=== PATIENT | female | born 1940 | race Caucasian/White ===

== ENCOUNTER 2022-01-03 12:02 | Inpatient (IN) | payer MEDICARE ==
[~2022-01-03] VITALS: Ht 165.1 cm; Wt 88.9 kg
[~2022-01-03 12:02] MED LIST: 3IN1 COMMODE XX; ALBUTEROL2.5 MG/3 M NEB; AMARYL2 MG PO; AMPICILLIN TRI500 M1 PO; ANTIVERT25 MG PO; ARAVA20 MG PO; ASPIRIN325 MG PO; AZO CRANBERRY1 EACH PO; CANE1 EACH; CLARITIN10 M2 PO; CLARITIN10 MG PO; COZAAR100 MG PO; COZAAR50 MG PO; CYMBALTA 30MG C30 MG PO; FENOFIBRATE160 MG PO; FLORAJEN460 MG PO; FOLIC ACID1 MG PO; GABAPENTIN300 MG PO; GABAPENTIN600 MG PO; HUMULIN R100 UNIT/2 SC; KLOR-CON M2020 MEQ PO; LEVEMIR VI100 UNITS/ SC; LOSARTAN-HCTZ1 EAC1 PO; LOVAZA1 GM PO; METFORMIN HCL500 MG PO; MIRALAX17 GM PO; ONDANSETRON ODT4 MG PO; ONE DAILY MULT1 EAC1 PO; PANTOPRAZOLE SO40 MG PO; PHENAZOPYRIDINE PO; PLAQUENIL200 MG PO; POTASSIUM CHLO20 ME2 PO; PREDNISONE 10MG10 MG PO; REPATHA SU140 MG/1 M SC; TRAMADOL HCL50 MG PO; TRAZODONE 50MG50 MG PO; TRESIBA100 UNIT/1 SC; ULTRA-LIGHT RO1 EACH XX; VITAMIN B-121000 MC1 PO; VITAMIN D5000 UNI1 PO; ZYRTEC10 M3 PO; [UNRECOGNIZED DRUG - OTHER]
[2022-01-03 13:50] LABS: EOSINOPHIL 2.1 % (0-7); HCT 39.9 % (37.0-47.0); HGB 13.1 g/dl (12.5-16.0); LYMPHOCYTE 22.7 % (15-48); MCH 29.4 pg (25.0-31.0); MCHC 32.8 g/dL (32.0-36.0); MCV 89.7 fL (78.0-100.0); MONOCYTE 10.9 % (0-12); MPV 12.8 fL (6.0-9.5); NEUTROPHIL 62.8 % (41-80); NRBC 0; PLT 189 K/uL (150-400); RBC 4.45 M/uL (4.20-5.40); RDW 13.9 % (11.5-14.0); WBC 6.2 K/uL (4.0-10.5)
[2022-01-03 13:55] LABS: INR 1.1 (0.9-1.2); PROTHROMBIN TIME 13.6 SECONDS (11.8-13.4); PTT 24.1 SECONDS (24.4-34.7)
[2022-01-03 14:02] LABS: BILIRUBIN 1+ mg/dL (NEGATIVE); BLOOD NEGATIVE Ery/uL (NEGATIVE); CLARITY CLEAR (CLEAR); COLOR YELLOW (YELLOW); GLUCOSE (U) NORMAL (NORMAL); LEUKOCYTES TRACE Leu/uL (NEGATIVE); NITRITE NEGATIVE (NEGATIVE); PROTEIN 1+ mg/dL (NEGATIVE); SPECIFIC GRAVITY >=1.030 (1.001-1.030); UROBILINOGEN 0.2 mg/dL (0.2-1.0)
[2022-01-03 14:10] LABS: BACTERIA 2+
[2022-01-03 14:27] LABS: ALBUMIN 3.6 g/dL (3.4-5.0); BILIRUBIN - TOTAL 0.6 mg/dL (0.2-1.0); BUN/CREAT RATIO (CALC) 21.5 RATIO; CREATININE 1.07 mg/dL (0.51-0.95); GLOBULIN (CALCULATION) 3.5 g/dL; MAGNESIUM 1.7 mg/dL (1.8-2.4); POTASSIUM 3.8 mmol/L (3.5-5.1); TOTAL PROTEIN 7.1 g/dL (6.4-8.2)
[2022-01-03 15:00] LABS: LACTIC ACID 1.5 mmol/L (0.4-1.9)
[2022-01-04] MEDS ORDERED: TRESIBA FL100 UNIT/1 SC (01:09)
[2022-01-04] MEDS ORDERED: NAMENDA 10MG TA10 MG PO (01:10)
[2022-01-04] MEDS ORDERED: ULTRAM50 MG PO (01:13)
[2022-01-04] MEDS ORDERED: ZYRTEC10 MG PO (01:15)
[2022-01-04] MEDS ORDERED: PROBIOTIC1 EAC2 PO (01:16)
[2022-01-04] MEDS ORDERED: PEPCID AC20 MG PO (01:17)
[2022-01-04 06:39] LABS: BASOPHIL 1.2 % (0-2); EOSINOPHIL 2.8 % (0-7); HCT 36.9 % (37.0-47.0); HGB 11.9 g/dl (12.5-16.0); LYMPHOCYTE 33.5 % (15-48); MCH 29.3 pg (25.0-31.0); MCHC 32.2 g/dL (32.0-36.0); MCV 90.9 fL (78.0-100.0); MONOCYTE 11.3 % (0-12); MPV 12.3 fL (6.0-9.5); NEUTROPHIL 50.8 % (41-80); NRBC 0; PLT 188 K/uL (150-400); RBC 4.06 M/uL (4.20-5.40); RDW 14.1 % (11.5-14.0); WBC 6.7 K/uL (4.0-10.5)
[2022-01-04 07:09] LABS: BUN/CREAT RATIO (CALC) 17.2 RATIO; CREATININE 1.16 mg/dL (0.51-0.95); POTASSIUM 3.5 mmol/L (3.5-5.1)
--- NOTE | 2022-01-04 11:10 | NUR ---
MET WITH PT AND DAUGHTER LIBERTY [phone]. REGARDING D/C PLANS. PT. IS CURRENT WITH [facility] FOR THERAPY. SHE HAS FRIENDS WHO CHECK IN ON HER AND A CONVEYANCER EVERY OTHER WEEK. THE DAUGHTER ASKED IF PT. COULD BE REFERRED TO [facility]. PER THERAPY EVALS THEY ARE RECOMMENDING PT. RETURN HOME WITH HH.
--- NOTE | 2022-01-04 12:15 | NUR ---
CHECKED WITH DORIS AT [facility] THEY WILL REVIEW REFERRAL. PER DR. MOORE HE THINKS PT WOULD BE READY BY SATURDAY THEY ARE WAITING ON CULTURES.
--- NOTE | 2022-01-05 01:43 | NUR ---
2100- RESIDENT DIFFICULT TO AROUSE, WOULD RESPONSE WITH TACTILE STIMULI BUT LETHERGIC, SPEECH GARBLED, SKIN COOL AND CLAMMY, BLOOD SUGAR 225 SCHEDULE 3 UNITSOF REGULAR INSULIN GIVEN ORDERED, UNABLE TO GIVE PO ORDERED MEDICATIONS R/T ALTERED MENTAL STATUS AND DIFFICULTY TO AROUSE. VITAL SIGNS STABLE. DISINTEGRATOR OPERATOR NOTFIED.STROKE PROTOCOL INITATED, SEND FOR CT SCAN OF HEAD, RESULTS NEG. RETURNED TO ROOM, CONDITION UNCHANGED.
--- NOTE | 2022-01-05 03:45 | NUR ---
0200 PATIENT AWAKE AND BACK TO BASELINE.
[2022-01-05 07:02] LABS: BASOPHIL 0.9 % (0-2); EOSINOPHIL 2.6 % (0-7); HCT 36.7 % (37.0-47.0); HGB 11.9 g/dl (12.5-16.0); LYMPHOCYTE 26.8 % (15-48); MCH 29.3 pg (25.0-31.0); MCHC 32.4 g/dL (32.0-36.0); MCV 90.4 fL (78.0-100.0); MPV 11.8 fL (6.0-9.5); NEUTROPHIL 59.2 % (41-80); NRBC 0; PLT 177 K/uL (150-400); RBC 4.06 M/uL (4.20-5.40); RDW 14.1 % (11.5-14.0); WBC 6.6 K/uL (4.0-10.5)
[2022-01-05 07:28] LABS: ALBUMIN 2.6 g/dL (3.4-5.0); BILIRUBIN - TOTAL 0.4 mg/dL (0.2-1.0); BUN/CREAT RATIO (CALC) 10.1 RATIO; CREATININE 2.27 mg/dL (0.51-0.95); GLOBULIN (CALCULATION) 3.5 g/dL; MAGNESIUM 1.8 mg/dL (1.8-2.4); POTASSIUM 3.6 mmol/L (3.5-5.1); TOTAL PROTEIN 6.1 g/dL (6.4-8.2)
--- NOTE | 2022-01-05 10:00 | NUR ---
01/05/22 [facility] has accept patient for admission on 01/06. Daughter, Ginger Camilo, reports that her son will provide transportation. Please call Ms. Camilo r/t time for transport. Report given to MS TEN Jackson.
--- NOTE | 2022-01-05 12:31 | NUR ---
PT HAS BEEN ACCEPTED TO [facility] FOR 01/06/22. PT. MUST HAVE A NEW COVID TEST BEFORE ADMISSION. REPORT NUMBER IS [phone] FAX IS [phone]
--- NOTE | 2022-01-05 12:33 | NUR ---
TC TO PT. DAUGHTER, LIBERTY, . HAD TO LEAVE A MESSAGE FOR A RETURN CALL.
[2022-01-06 06:42] LABS: BASOPHIL 1.2 % (0-2); EOSINOPHIL 4.3 % (0-7); HCT 39.1 % (37.0-47.0); HGB 12.7 g/dl (12.5-16.0); LYMPHOCYTE 32.1 % (15-48); MCH 29.4 pg (25.0-31.0); MCHC 32.5 g/dL (32.0-36.0); MCV 90.5 fL (78.0-100.0); MONOCYTE 10.4 % (0-12); MPV 12.4 fL (6.0-9.5); NEUTROPHIL 51.3 % (41-80); NRBC 0; PLT 191 K/uL (150-400); RBC 4.32 M/uL (4.20-5.40); RDW 13.9 % (11.5-14.0)
[2022-01-06 07:11] LABS: BUN/CREAT RATIO (CALC) 15.5 RATIO; CREATININE 1.03 mg/dL (0.51-0.95); POTASSIUM 3.6 mmol/L (3.5-5.1)
[2022-01-06] MEDS ORDERED: CYMBALTA 30MG C30 MG PO (08:00)
[2022-01-06] MEDS ORDERED: ULTRAM50 MG PO (08:00)
[2022-01-06] MEDS ORDERED: GABAPENTIN600 MG PO (08:00)
== END 2022-01-06 10:54 | DRG 689 ==
LOC: FER 12:02 → FMS 22:19
PROVIDERS: Emergency Medicine; Internal Medicine; Nurse Practitioner; ADMIT Internal Medicine
DX: N39.0 Urinary tract infection, site not specified (principal); G93.41 Metabolic encephalopathy; N17.9 Acute kidney failure, unspecified; Z20.822 Contact with and (suspected) exposure to COVID-19; Z66 Do not resuscitate; I10 Essential (primary) hypertension; I25.10 Atherosclerotic heart disease of native coronary artery without angina pectoris; E11.9 Type 2 diabetes mellitus without complications; E86.0 Dehydration; F03.90 Unspecified dementia, unspecified severity, without behavioral disturbance, psychotic disturbance, mood disturbance, and anxiety; M06.9 Rheumatoid arthritis, unspecified; F32.A Depression, unspecified; E78.5 Hyperlipidemia, unspecified; Z90.49 Acquired absence of other specified parts of digestive tract; Z90.710 Acquired absence of both cervix and uterus; Z98.49 Cataract extraction status, unspecified eye; Z88.5 Allergy status to narcotic agent; Z79.899 Other long term (current) drug therapy; Z79.52 Long term (current) use of systemic steroids; Z79.84 Long term (current) use of oral hypoglycemic drugs; Z79.82 Long term (current) use of aspirin; Z88.8 Allergy status to other drugs, medicaments and biological substances; Z98.41 Cataract extraction status, right eye; Z98.42 Cataract extraction status, left eye
CPT/HCPCS: 36415; 70450; 71045; 80048; 80053; 81001; 82962; 83605; 83735; 84145; 84443; 84484; 85025; 85610; 85730; 87040; 87088; 93005; 94010; 94760; 94762; 97162; 97166; 97530-GP; 97535; J0696; J1650; J7030; J7512; U0002

== ENCOUNTER 2022-02-12 17:24 | Inpatient (IN) | payer MEDICARE ==
[~2022-02-12] VITALS: Ht 170.2 cm; Wt 86.3 kg
[~2022-02-12 17:24] MED LIST changes: +NAMENDA 10MG TA10 MG PO; +PEPCID AC20 MG PO; +PROBIOTIC1 EAC2 PO; +TRESIBA FL100 UNIT/1 SC; +ULTRAM50 MG PO; +ZYRTEC10 MG PO
[2022-02-12 18:49] LABS: BASOPHIL 0.6 % (0-2); EOSINOPHIL 1.1 % (0-7); HCT 36.5 % (37.0-47.0); HGB 11.9 g/dl (12.5-16.0); LYMPHOCYTE 6.3 % (15-48); MCHC 32.6 g/dL (32.0-36.0); MONOCYTE 7.6 % (0-12); MPV 11.7 fL (6.0-9.5); NRBC 0; PLT 203 K/uL (150-400); RDW 13.9 % (11.5-14.0); WBC 14.1 K/uL (4.0-10.5)
[2022-02-12 19:14] LABS: BILIRUBIN NEGATIVE (NEGATIVE); BLOOD NEGATIVE Ery/uL (NEGATIVE); CLARITY CLEAR (CLEAR); COLOR YELLOW (YELLOW); GLUCOSE (U) 1+ mg/dL (NORMAL); LEUKOCYTES NEGATIVE Leu/uL (NEGATIVE); NITRITE NEGATIVE (NEGATIVE); PROTEIN NEGATIVE (NEGATIVE); UROBILINOGEN 0.2 mg/dL (0.2-1.0); pH 5.5 (5.0-9.0)
[2022-02-12 19:14] LABS: BUN/CREAT RATIO (CALC) 20.5 RATIO; CREATININE 1.32 mg/dL (0.51-0.95); POTASSIUM 4.2 mmol/L (3.5-5.1)
--- NOTE | 2022-02-12 22:09 | NUR ---
PATIENT ARRIVED TO FLOOR FROM ER DAUGHTER AT BED SIDE. ABLE TO MAKE NEEDS KNOW, NO SIGNS OF DISTRESS, BED LOCKED IN LOW POSITION, CALL LIGHT IN REACH.
[2022-02-12] MEDS ORDERED: LASIX40 MG PO (22:40)
[2022-02-12 22:48] LABS: CORONAVIRUS 2019 SARS-COV-2 NEGATIVE (NEGATIVE); INFLUENZA A NAA NEGATIVE (NEGATIVE)
[2022-02-12] MEDS ORDERED: KLOR-CON M2020 MEQ PO (22:50)
[2022-02-12] MEDS ORDERED: ANTIVERT25 MG PO (22:52)
[2022-02-12] MEDS ORDERED: ONDANSETRON ODT8 MG PO (22:53)
[2022-02-12] MEDS ORDERED: ACETAMINOPHEN500 M1 PO (22:54)
[2022-02-12] MEDS ORDERED: IBUPROFEN400 MG PO (22:54)
[2022-02-12] MEDS ORDERED: CYMBALTA 30MG C30 MG PO (22:55)
[2022-02-12] MEDS ORDERED: GABAPENTIN600 MG PO (22:55)
[2022-02-12] MEDS ORDERED: METFORMIN HCL500 MG PO (22:56)
[2022-02-12] MEDS ORDERED: KEFLEX250 MG PO (22:57)
[2022-02-13 06:31] LABS: BASOPHIL 0.8 % (0-2); EOSINOPHIL 4.5 % (0-7); HGB 11.1 g/dl (12.5-16.0); LYMPHOCYTE 19.2 % (15-48); MCH 29.6 pg (25.0-31.0); MCHC 32.6 g/dL (32.0-36.0); MCV 90.7 fL (78.0-100.0); MONOCYTE 8.8 % (0-12); MPV 11.8 fL (6.0-9.5); NRBC 0; PLT 195 K/uL (150-400); RBC 3.75 M/uL (4.20-5.40); RDW 13.9 % (11.5-14.0); WBC 10.1 K/uL (4.0-10.5)
[2022-02-13 07:01] LABS: ALBUMIN 2.7 g/dL (3.4-5.0); BILIRUBIN - TOTAL 0.4 mg/dL (0.2-1.0); BUN/CREAT RATIO (CALC) 16.9 RATIO; CREATININE 1.24 mg/dL (0.51-0.95); GLOBULIN (CALCULATION) 3.2 g/dL; MAGNESIUM 1.7 mg/dL (1.8-2.4); PHOSPHORUS 3.7 mg/dL (2.6-4.7); POTASSIUM 3.3 mmol/L (3.5-5.1); TOTAL PROTEIN 5.9 g/dL (6.4-8.2)
[2022-02-14 06:14] LABS: EOSINOPHIL 6.2 % (0-7); HCT 33.5 % (37.0-47.0); HGB 10.6 g/dl (12.5-16.0); LYMPHOCYTE 19.4 % (15-48); MCH 28.7 pg (25.0-31.0); MCHC 31.6 g/dL (32.0-36.0); MCV 90.8 fL (78.0-100.0); MONOCYTE 10.2 % (0-12); MPV 12.2 fL (6.0-9.5); NEUTROPHIL 62.3 % (41-80); NRBC 0; PLT 180 K/uL (150-400); RBC 3.69 M/uL (4.20-5.40); WBC 7.6 K/uL (4.0-10.5)
[2022-02-14 06:59] LABS: BUN/CREAT RATIO (CALC) 18.4 RATIO; CREATININE 1.03 mg/dL (0.51-0.95); POTASSIUM 3.7 mmol/L (3.5-5.1)
--- NOTE | 2022-02-14 10:04 | NUR ---
MET WITH PT. PT. ADVISED THAT SHE HAS A RW. SHE IS CURRENT WITH [facility] AND THAT SHE HAS A CLEANING LADY EACH WEEK TO HELP HER. PT. WILL D/C HOME THIS DATE.
== END 2022-02-14 10:50 | disposition home or self-care (01) | DRG 684 ==
LOC: FER 17:24 → FMS 20:31
PROVIDERS: Internal Medicine; Nurse Practitioner; Nurse Practitioner Family; ADMIT Internal Medicine
DX: N17.9 Acute kidney failure, unspecified (principal); E86.0 Dehydration; Z66 Do not resuscitate; I10 Essential (primary) hypertension; E11.9 Type 2 diabetes mellitus without complications; Z20.822 Contact with and (suspected) exposure to COVID-19; D64.9 Anemia, unspecified; M06.9 Rheumatoid arthritis, unspecified; E78.5 Hyperlipidemia, unspecified; L40.50 Arthropathic psoriasis, unspecified; F03.90 Unspecified dementia, unspecified severity, without behavioral disturbance, psychotic disturbance, mood disturbance, and anxiety; F32.A Depression, unspecified; Z79.84 Long term (current) use of oral hypoglycemic drugs; Z79.899 Other long term (current) drug therapy; Z88.1 Allergy status to other antibiotic agents; Z88.5 Allergy status to narcotic agent; Z88.8 Allergy status to other drugs, medicaments and biological substances; Z90.49 Acquired absence of other specified parts of digestive tract; Z90.710 Acquired absence of both cervix and uterus; Z98.890 Other specified postprocedural states; Z98.41 Cataract extraction status, right eye; Z98.42 Cataract extraction status, left eye; Z87.440 Personal history of urinary (tract) infections
CPT/HCPCS: 36415; 71045; 80048; 80053; 81003; 83036; 83605; 83735; 83880; 84100; 84145; 85025; 87040; 94010; 97162; 97166; 97530-GP; 97535; J0360; J1650; J7030; J7512; U0002

== ENCOUNTER 2022-04-17 18:09 | Day surgery (SDCO) | payer MEDICARE ==
[~2022-04-17] VITALS: Ht 170.2 cm; Wt 86.8 kg
[~2022-04-17 18:09] MED LIST changes: +ACETAMINOPHEN500 M1 PO; +IBUPROFEN400 MG PO; +KEFLEX250 MG PO; +LASIX40 MG PO; +ONDANSETRON ODT8 MG PO
[2022-04-17 20:11] LABS: BASOPHIL 0.9 % (0-2); EOSINOPHIL 1.1 % (0-7); HCT 37.5 % (37.0-47.0); HGB 12.1 g/dl (12.5-16.0); LYMPHOCYTE 11.8 % (15-48); MCH 29.2 pg (25.0-31.0); MCHC 32.3 g/dL (32.0-36.0); MCV 90.4 fL (78.0-100.0); MONOCYTE 16.3 % (0-12); MPV 12.8 fL (6.0-9.5); NEUTROPHIL 69.3 % (41-80); NRBC 0; PLT 193 K/uL (150-400); RBC 4.15 M/uL (4.20-5.40); RDW 15.8 % (11.5-14.0); WBC 6.4 K/uL (4.0-10.5)
[2022-04-17 20:26] LABS: ALBUMIN 3.4 g/dL (3.4-5.0); BILIRUBIN - TOTAL 0.4 mg/dL (0.2-1.0); BUN/CREAT RATIO (CALC) 17.7 RATIO; CREATININE 1.3 mg/dL (0.51-0.95); GLOBULIN (CALCULATION) 3.2 g/dL; POTASSIUM 3.7 mmol/L (3.5-5.1); TOTAL PROTEIN 6.6 g/dL (6.4-8.2)
[2022-04-17 20:32] LABS: BILIRUBIN NEGATIVE (NEGATIVE); BLOOD NEGATIVE Ery/uL (NEGATIVE); CLARITY CLEAR (CLEAR); COLOR YELLOW (YELLOW); GLUCOSE (U) NORMAL (NORMAL); LEUKOCYTES NEGATIVE Leu/uL (NEGATIVE); NITRITE NEGATIVE (NEGATIVE); PROTEIN TRACE (LOW) mg/dL (NEGATIVE); SPECIFIC GRAVITY >=1.030 (1.001-1.030); UROBILINOGEN 0.2 mg/dL (0.2-1.0)
[2022-04-17 20:41] LABS: BACTERIA 4+
[2022-04-17] MEDS ORDERED: ARAVA20 MG PO (22:49)
[2022-04-17] MEDS ORDERED: CLARITIN10 MG PO ×2 (22:49→23:00)
[2022-04-17] MEDS ORDERED: ANTIVERT25 MG PO (22:50)
[2022-04-17] MEDS ORDERED: COZAAR100 MG PO (22:50)
[2022-04-17] MEDS ORDERED: NAMENDA 10MG TA10 MG PO (22:51)
[2022-04-17] MEDS ORDERED: METFORMIN HCL500 MG PO (22:51)
[2022-04-17] MEDS ORDERED: ONDANSETRON ODT8 MG PO (22:52)
[2022-04-17] MEDS ORDERED: MIRALAX17 GM PO (22:52)
[2022-04-17] MEDS ORDERED: KLOR-CON M2020 MEQ PO (22:54)
[2022-04-17] MEDS ORDERED: ULTRAM50 MG PO (22:55)
[2022-04-17] MEDS ORDERED: PREDNISONE5 MG PO (22:55)
[2022-04-17] MEDS ORDERED: TRAZODONE HCL50 MG PO (22:56)
[2022-04-17] MEDS ORDERED: TRESIBA FL100 UNIT/1 SC (22:56)
[2022-04-17] MEDS ORDERED: TRIAMCINOLONE 080 GM TOP (22:57)
[2022-04-17] MEDS ORDERED: VITAMIN D3 MA125 MCG PO (22:57)
[2022-04-17] MEDS ORDERED: ACETAMINOPHEN325 MG PO (22:58)
[2022-04-17] MEDS ORDERED: ASPIRIN325 MG PO (22:58)
[2022-04-17] MEDS ORDERED: KEFLEX250 MG PO (22:59)
[2022-04-17] MEDS ORDERED: CENTRUM SILVER1 EAC4 PO (22:59)
[2022-04-17] MEDS ORDERED: CRANBERRY 12,61 EACH PO (23:00)
[2022-04-17] MEDS ORDERED: LOTRIMIN30 ML TOP (23:00)
[2022-04-17] MEDS ORDERED: CYMBALTA 30MG C30 MG PO ×2 (23:01→23:02)
[2022-04-17] MEDS ORDERED: VITAMIN B-121000 MC1 PO (23:01)
[2022-04-17] MEDS ORDERED: PEPCID AC20 MG PO (23:02)
[2022-04-17] MEDS ORDERED: FOLIC ACID1 MG PO (23:03)
[2022-04-17] MEDS ORDERED: FENOFIBRATE160 MG PO (23:03)
[2022-04-17] MEDS ORDERED: LOVAZA1 GM PO (23:03)
[2022-04-17] MEDS ORDERED: PLAQUENIL200 MG PO (23:04)
[2022-04-17] MEDS ORDERED: LASIX40 MG PO (23:04)
[2022-04-17] MEDS ORDERED: GABAPENTIN600 MG PO (23:04)
[2022-04-18 07:17] LABS: EOSINOPHIL 0.6 % (0-7); HCT 35.6 % (37.0-47.0); HGB 11.3 g/dl (12.5-16.0); LYMPHOCYTE 21.7 % (15-48); MCH 29.1 pg (25.0-31.0); MCHC 31.7 g/dL (32.0-36.0); MCV 91.8 fL (78.0-100.0); MONOCYTE 16.9 % (0-12); MPV 12.6 fL (6.0-9.5); NEUTROPHIL 59.2 % (41-80); NRBC 0; PLT 177 K/uL (150-400); RBC 3.88 M/uL (4.20-5.40); WBC 4.9 K/uL (4.0-10.5)
[2022-04-18 07:35] LABS: INR 1.11 (0.9-1.2); PROTHROMBIN TIME 13.7 SECONDS (11.8-13.4)
[2022-04-18 07:37] LABS: D-DIMER 0.49 ug/mLFEU (0.00-0.41)
[2022-04-18 07:49] LABS: BUN/CREAT RATIO (CALC) 15.7 RATIO; C-REACTIVE PROTEIN 4.4 mg/dL (<=0.90); CREATININE 1.27 mg/dL (0.51-0.95); POTASSIUM 3.5 mmol/L (3.5-5.1)
--- NOTE | 2022-04-18 18:17 | NUR ---
PT FROM [facility]. AMS POST FALL FROM COUCH WITHOUT INJURIES. PT FAMILY NOTED LETHARGY AND COULDNT GET UP FROM FLOOR SO THEY CALLED EMS. PT IS COVID POS W/O S/S. IN DROPLET WITH CONTACT PRECAUTIONS. PBNP ELEVATED 998, CARDS WAS CONSULTED AND RECOMMENDED MEDICAL MANGAMENT R/T HAVING ECHO IN 2018 AT 73% AND CHANGED FENOFIBRATE TO Q OTHER DAY INSTEAD OF DAILY. PT HAS UA AND BLOOD CUL PENDING. ORDER TO ENCOURAGE MOBILITY, PT ASSIST X1 WITH RW TO [facility], PT HAD EPISODE TODAY WHERE SHE WENT TO [facility] BY SELF AND COULDNT MAKE IT BACK STRAIGHT IN THE BED R/T WEAKNESS. WORKED WITH PT/OT. PT HAS BED ALARM ON NOW. ENCOURAGED TO USE SCDS AND ISB. PT HAS BOOGIE WITH 1400 OUT.PT ON ROOM AIR SATS 95% SR ON MONITOR HR 69 BPM, 20 LW SALINE LOCKED. PT IS ACHS GLUCOSE CHECKS ON LOW DOSE SLIDING SCALE INSULIN. PT ON DECADRON WELL MAY ELEVATE GLUCOSE. ROCEPHIN FOR POSSIBLE UTI R/T BACTERIA IN URINE.TELE DC'D.
[2022-04-19 11:04] LABS: BUN/CREAT RATIO (CALC) 17.9 RATIO; CREATININE 1.17 mg/dL (0.51-0.95); POTASSIUM 3.5 mmol/L (3.5-5.1)
== END 2022-04-19 16:44 | disposition home or self-care (01) ==
LOC: FER 18:09 → FMS 20:52
PROVIDERS: Internal Medicine; Nurse Practitioner; ADMIT Internal Medicine
DX: I12.9 Hypertensive chronic kidney disease with stage 1 through stage 4 chronic kidney disease, or unspecified chronic kidney disease (principal); E11.22 Type 2 diabetes mellitus with diabetic chronic kidney disease; N18.30 Chronic kidney disease, stage 3 unspecified; N17.9 Acute kidney failure, unspecified; E87.1 Hypo-osmolality and hyponatremia; E86.0 Dehydration; G93.41 Metabolic encephalopathy; R79.89 Other specified abnormal findings of blood chemistry; U07.1 COVID-19; F03.90 Unspecified dementia, unspecified severity, without behavioral disturbance, psychotic disturbance, mood disturbance, and anxiety; M06.9 Rheumatoid arthritis, unspecified; L40.50 Arthropathic psoriasis, unspecified; E78.5 Hyperlipidemia, unspecified; I08.0 Rheumatic disorders of both mitral and aortic valves; Z66 Do not resuscitate; Z86.11 Personal history of tuberculosis; Z79.4 Long term (current) use of insulin; Z79.82 Long term (current) use of aspirin; Z79.84 Long term (current) use of oral hypoglycemic drugs; Z79.899 Other long term (current) drug therapy; Z88.1 Allergy status to other antibiotic agents; Z88.5 Allergy status to narcotic agent; Z88.8 Allergy status to other drugs, medicaments and biological substances; W07.XXXA Fall from chair, initial encounter
CPT/HCPCS: 36415; 80048; 80053; 81001; 82550; 83605; 83615; 83690; 83880; 84145; 84484; 85025; 85379; 85610; 86140; 87040; 87088; 93005; 94010; 94760; 96360; 97162; 97530-GP; G0378; J0696; J7040; J8540; U0002